=== PATIENT | male | born 1955 | race African-American/Black ===

== ENCOUNTER 2018-02-18 15:56 | Inpatient (IN) | payer MEDICARE ==
[~2018-02-18] VITALS: Ht 177.8 cm; Wt 129.9 kg
--- OUTSIDE RECORDS SUMMARY | 2018-02-18 16:00 | XMS REPORT | Clinical Summary ---
Author Author JADEN [employer] [facility] Address Unknown Phone Unavailable Care Team Providers Care Canal Structure Operator Name Role Phone PCP Unavailable Allergies Active Allergy Reactions Severity Noted Date Comments Levofloxacin Hives 12/01/2016 W/ burning sensation Current Medications Prescription Sig. Disp. Refills Start End Date Status Date labetalol (NORMODYNE) 300 Take 300 mg by mouth 2 Active MG tablet (two) times daily. levothyroxine (SYNTHROID, Take 175 mcg by mouth Active LEVOTHROID) 150 MCG daily. tablet simvastatin (ZOCOR) 20 MG Take 20 mg by mouth Active tablet nightly. LISINOPRIL ORAL Take 20 mg by mouth 2 Active (two) times daily. hydrALAZINE (APRESOLINE) Take 1 tablet (100 mg 90 tablet 0 11/12/19 Active 100 MG tablet total) by mouth 2 (two) 15 times daily. HYDROcodone-acetaminophen Take 2 tablets by mouth Active (NORCO 10-325) 10-325 mg every 4 (four) hours as per tablet needed for Pain. amLODIPine (NORVASC) 10 Take 10 mg by mouth. 08/21/20 Active MG tablet 14 clotrimazole-betamethason Apply to penile foreskin 07/07/20 Active e (LOTRISONE) 1-0.05 % daily PRN rash. 16 cream glimepiride (AMARYL) 4 MG Take 4 mg by mouth. 07/11/20 Active tablet 16 NIFEdipine (NIFEDICAL XL) Take 60 mg by mouth. 07/07/20 Active 60 MG (OSM) 24 hr tablet 16 albuterol-ipratropium Inhale 1 puff by mouth 1 Inhaler 0 12/04/19 Active (COMBIVENT RESPIMAT) via inhaler every 6 (six) 17 20-100 mcg/actuation Mist hours as needed for inhaler Wheezing or Shortness of Breath. predniSONE (DELTASONE) 20 4 tablets po x 3 days 40 tablet 0 12/04/19 Active MG tablet then 3 t x 3 d Then 2 t 17 x 3 d then 1 tab x 3 days then off.. fluticasone-salmeterol Inhale 1 puff by mouth 1 Inhaler 0 12/04/19 12/04/19 (ADVAIR) 250-50 mcg/dose via inhaler 2 (two) times 17 18 diskus inhaler daily. Active Problems Problem Noted Date Bronchitis 12/04/2016 COPD exacerbation ([facility]) 12/04/2016 YUDI (obstructive sleep apnea) 11/30/2016 Hypothyroid 11/30/2016 Type 2 diabetes mellitus ([facility]) 11/30/2016 DVT (deep venous thrombosis) ([facility]) 08/23/2015 Overview: UPDATED BY ICD10 SNOMED/IMO UPDATES Pulmonary embolism ([facility]) 08/23/2015 Shortness of breath at rest 08/20/2015 Acute renal failure ([facility]) 11/12/2014 Renal failure (ARF), acute on chronic ([facility]) 11/11/2014 Leukocytosis 11/11/2014 Ankylosing spondylitis of lumbar region ([facility]) 11/11/2014 Immunizations Name Dates Previously Given Next Due Tdap 07/08/2015 Social History Tobacco Use Types Packs/Day Years Used Date Current Every Day Smoker 11 20 Quit: 11/12/2013 Tobacco Cessation: Ready to Quit: No; Counseling Given: No Alcohol Use Drinks/Week oz/Week Comments Yes occasional Sex Assigned at Date Recorded Not on file Last Filed Vital Signs Not on file Plan of Treatment Not on file Implants Implanted Type Area Evidence Technician Device Expiration Model / Identifier Date Serial / Lot Ivan Young Ft Iii W/3 #2 [place]/Art Left: ARTHREX 02/18/2019 [id number] Sutures - [id number] hroscopy Shoulder 3 / Implanted: Qty: 2 on 05/01/2014 by / Sacha Gonzales MD [id number] Results Not on fileafter 02/17/2017
--- OUTSIDE RECORDS SUMMARY | 2018-02-18 16:00 | XMS REPORT ---
Author Author [facility] Address Unknown Phone Unavailable Care Team Providers Care Best Worker Name Role Phone PATRICIA CHICAS Unavailable Unavailable Problems This patient has no known problems. Allergies, Adverse Reactions, Alerts This patient has no known allergies or adverse reactions. Medications This patient has no known medications. Results Test Description Test Time Test Comments Text Results Atomic Results Result Comments BLOOD CULTURE 2016-12-06 07:00:00 CULTURE (BEAKER) (test [id number]=[id number]) No growth in 5 days BLOOD [id number] 07:00:00* Test Item Value Reference Range Comments CULTURE (BEAKER) (test [id number]) No growth in 5 days
[2018-02-18 16:32] LABS: BILIRUBIN,URINE NEGATIVE (NEGATIVE); CLARITY,URINE CLOUDY (CLEAR); COLOR,URINE STRAW (YELLOW); KETONES,URINE NEGATIVE (NEGATIVE); LEUKOCYTE ESTERASE ,URINE TRACE (NEGATIVE); NITRITE,URINE POSITIVE (NEGATIVE); PROTEIN,URINE DIPSTICK 2+ (NEGATIVE); URINE UROBILINOGEN 0.2 mg/dL (0.2 - 1)
[2018-02-18 16:44] LABS: AMORPHOUS SEDIMENT,URINE FEW (FEW); BACTERIA,URINE FEW /HPF
[2018-02-18] MEDS ORDERED: ONDANSETRON HCL INJ 2 MG/ML VIAL IV STA (18:38)
[2018-02-18] MEDS ORDERED: MORPHINE SULFATE 2 MG/ML SYR IV STA (18:38)
[2018-02-18] MEDS ORDERED: CEFTRIAXONE SOD 1 GM VIAL IV ONE (19:00)
[2018-02-18 19:06] LABS: BASOPHILS # (AUTO) 0.1 (0.0-0.1); BASOPHILS % 0.3 % (0.0-1.0); HEMATOCRIT 47.9 % (38.2-49.6); HEMOGLOBIN 16.1 g/dL (14.0-18.0); LYMPHOCYTES # (AUTO) 1.6 (1.0-3.2); LYMPHOCYTES % 6.6 % (18.0-39.1); MEAN CORPUSCULAR HEMOGLOBIN 32.4 pg (28-32); MEAN CORPUSCULAR HGB CONC 33.6 g/dL (31-35); MEAN CORPUSCULAR VOLUME 96.4 fL (81-99); MONOCYTES # (AUTO) 1.9 (0.2-0.8); MONOCYTES % 7.9 % (4.4-11.3); NEUTROPHILS % 84.5 % (38.7-80.0); PLATELET COUNT 271 x10e3/uL (140-360); RED BLOOD COUNT 4.97 x10e6/uL (4.3-5.7); RED CELL DISTRIBUTION WIDTH 14.7 % (11.7-14.4)
[2018-02-18 19:15] LABS: INR 1.01; PROTHROMBIN TIME 12.5 seconds (11.9-14.5)
[2018-02-18 19:16] LABS: PARTIAL THROMBOPLASTIN TIME 32.7 seconds (23.8-35.5)
[2018-02-18 19:24] LABS: ALANINE AMINOTRANSFERASE 30 IU/L (0-55); ALBUMIN 3.8 g/dL (3.5-5.0); ALBUMIN/GLOBULIN RATIO 0.8 (0.8-2.0); ALKALINE PHOSPHATASE 100 IU/L (40-150); ANION GAP 15.4 mmol/L (8-16); BLOOD UREA NITROGEN 15 mg/dL (7-26); BUN/CREATININE RATIO 14 (6-25); CALCIUM 9.9 mg/dL (8.4-10.2); CARBON DIOXIDE 28 mmol/L (22-29); CHLORIDE 98 mmol/L (98-107); EST GLOMERULAR FILTRATION RATE > 60 ML/MIN (60-); GLUCOSE 122 mg/dL (74-118); POTASSIUM 4.4 mmol/L (3.5-5.1); SODIUM 137 mmol/L (136-145)
--- NOTE | 2018-02-18 19:42 | Diagnostic Imaging Report ---
EXAM: CT Abdomen and Pelvis WITHOUT contrast INDICATION: \S\hematuria \S\[id number] \S\1900 COMPARISON: None. TECHNIQUE: Abdomen and pelvis were scanned utilizing a multidetector helical scanner from the lung base to the pubic symphysis without administration of IV contrast. Absence of intravenous contrast decreases sensitivity for detection of focal lesions and vascular pathology. Coronal and sagittal reformations were obtained. Routine protocol was performed. IV CONTRAST: None ORAL CONTRAST: Water COMPLICATIONS: None RADIATION DOSE: Total DLP: 1360.2 mGy*cm Estimated effective dose: (DLP x 0.015 x size factor) mSv CTDIvol has been reviewed. It is below the limits set by the Radiation Protocol Committee (RPC). FINDINGS: LINES and TUBES: Granados catheter in place. LOWER THORAX: Unremarkable HEPATOBILIARY: Too small to characterize 0.6 cm hypodensity in the right hepatic lobe. No biliary ductal dilation. GALLBLADDER: No radio-opaque stones or sludge. No wall thickening. SPLEEN: No splenomegaly. PANCREAS: No focal masses or ductal dilatation. ADRENALS: Thickened appearance of the adrenal glands, left greater than right, likely hyperplasia. KIDNEYS/URETERS: No hydronephrosis. No cystic or solid mass lesions. No stones. GI TRACT: No abnormal distention, wall thickening, or evidence of bowel obstruction. Appendix is not clearly identified. There is however no fat stranding or adenopathy in the right lower quadrant to suggest appendicitis. PELVIC ORGANS/BLADDER: Collapsed urinary bladder secondary to Granados, limiting evaluation. LYMPH NODES: No lymphadenopathy. VESSELS: There is mild atherosclerotic disease in the aorta and major arterial branches. PERITONEUM / RETROPERITONEUM: No free air or fluid. BONES: There are degenerative changes in the lumbar spine. SOFT TISSUES: There is a fat containing umbilical hernia. IMPRESSION: No nephrolithiasis or hydronephrosis. If hematuria persists, recommend CT urography for more sensitive evaluation. Signed by: DR. Minesh Yo MD on 02/18/2018 7:39 PM
[2018-02-18] MEDS ORDERED: ACETAMINOPHEN 325 MG TAB PO ONE (20:00)
[2018-02-18] MEDS ORDERED: HYDRALAZINE HCL 20 MG/ML VIAL IV ONE (20:00)
[2018-02-18] MEDS ORDERED: ACETAMINOPHEN 1000 MG/100 ML IV ONE (20:12)
[2018-02-18 20:19] LABS: LYMPHOCYTES % (MANUAL) 6 % (19-48); MONOCYTES % (MANUAL) 3 % (3.4-9.0); NEUTROPHILS % (MANUAL) 91 % (40-74); PLATELET ESTIMATE ADEQUATE; PLATELET MORPHOLOGY COMMENT NORMAL; RBC MORPHOLOGY COMMENT NORMAL
[2018-02-18] MEDS ORDERED: ONDANSETRON HCL INJ 2 MG/ML VIAL IV PRN (20:30)
[2018-02-18] MEDS ORDERED: LEVOFLOXACIN 500MG/D5W 100ML 100 ML IV SCH (21:00)
--- OUTSIDE RECORDS SUMMARY | 2018-02-18 23:51 | XMS REPORT | Clinical Summary ---
Author Author JADEN [employer] [facility] Address Unknown Phone Unavailable Care Team Providers Care Surgical Attendant Name Role Phone PCP Unavailable Allergies Active [...] Problem Noted Date Bronchitis 12/04/2016 COPD exacerbation ([facility]) 12/04/2016 YUDI (obstructive sleep apnea) 11/30/2016 Hypothyroid 11/30/2016 Type 2 diabetes mellitus ([facility]) 11/30/2016 DVT (deep venous thrombosis) ([facility]) 08/23/2015 Overview: UPDATED BY ICD10 SNOMED/IMO UPDATES Pulmonary embolism ([facility]) 08/23/2015 Shortness of breath at rest 08/20/2015 Acute renal failure ([facility]) 11/12/2014 Renal failure (ARF), acute on chronic ([facility]) 11/11/2014 Leukocytosis 11/11/2014 Ankylosing spondylitis of lumbar region ([facility]) 11/11/2014 Immunizations Name Dates Previously Given Next [...] Not on file Implants Implanted Type Area Protection Agent Device Expiration Model / Identifier Date Serial / Lot Ivan Young Ft Iii W/3 #2 [place]/Art Left: ARTHREX 02/18/2019 [id number] Sutures - [id number] hroscopy Shoulder 3 / Implanted: Qty: 2 on 05/01/2014 by / Sacha Gonzales MD [id number] Results Not on fileafter 02/17/2017
[2018-02-19] MEDS: SODIUM CHLORIDE 0.9% 1000ML 1,000 ML IV SCH ×3 (01:01→12:29)
[2018-02-19] MEDS: MORPHINE SULFATE 2 MG/ML SYR IV PRN ×2 (01:02→08:40)
[2018-02-19] MEDS ORDERED: DIPHENHYDRAMINE HCL INJ 50 MG/ML VIAL IV ONE (01:15)
[2018-02-19] MEDS ORDERED: DIPHENHYDRAMINE HCL INJ 50 MG/ML VIAL ONE (01:17)
[2018-02-19 08:05] LABS: BASOPHILS # (AUTO) 0.1 (0.0-0.1); BASOPHILS % 0.4 % (0.0-1.0); HEMOGLOBIN 15.9 g/dL (14.0-18.0); LYMPHOCYTES # (AUTO) 1.7 (1.0-3.2); MEAN CORPUSCULAR HEMOGLOBIN 32.1 pg (28-32); MEAN CORPUSCULAR HGB CONC 32.4 g/dL (31-35); MEAN CORPUSCULAR VOLUME 98.8 fL (81-99); MONOCYTES # (AUTO) 2.2 (0.2-0.8); MONOCYTES % 10.2 % (4.4-11.3); NEUTROPHILS # (AUTO) 17.6 (2.1-6.9); NEUTROPHILS % 80.8 % (38.7-80.0); PLATELET COUNT 252 x10e3/uL (140-360); RED BLOOD COUNT 4.96 x10e6/uL (4.3-5.7); RED CELL DISTRIBUTION WIDTH 14.5 % (11.7-14.4)
[2018-02-19 08:26] LABS: ALANINE AMINOTRANSFERASE 26 IU/L (0-55); ALBUMIN 3.2 g/dL (3.5-5.0); ALBUMIN/GLOBULIN RATIO 0.7 (0.8-2.0); ALKALINE PHOSPHATASE 96 IU/L (40-150); BLOOD UREA NITROGEN 12 mg/dL (7-26); BUN/CREATININE RATIO 14 (6-25); CARBON DIOXIDE 31 mmol/L (22-29); CHLORIDE 99 mmol/L (98-107); CREATININE, SERUM 0.88 mg/dL (0.72-1.25); EST GLOMERULAR FILTRATION RATE > 60 ML/MIN (60-); GLUCOSE 137 mg/dL (74-118); SODIUM 138 mmol/L (136-145)
[2018-02-19] MEDS ORDERED: METOPROLOL TARTRATE 50 MG TAB PO ONE (08:30)
[2018-02-19] MEDS: ONDANSETRON HCL 4 MG ORAL DISINTEGRATING TAB PO PRN (08:40)
[2018-02-19 08:54] LABS: CREATINE KINASE 684 IU/L (30-200); MAGNESIUM 2.1 MG/DL (1.3-2.1)
--- NOTE | 2018-02-19 09:25 | Diagnostic Imaging Report ---
PROCEDURE:CHEST SINGLE (PORTABLE) TECHNIQUE:Portable AP chest INDICATION:Dyspnea; UTI COMPARISON:None. FINDINGS: Low lung volumes with vascular crowding and bibasilar subsegmental atelectasis. Upper limits of normal heart size for technique. Intact skeleton. Study limited by underpenetration and body habitus. CONCLUSION: Low lung volume without acute abnormality. Consider 2 view chest radiograph if continued clinical concern for chest pathology in the setting of dyspnea. Dictated by: Beni Sanches M.D. on 02/19/2018 at 9:27 Electronically approved by: Beni Sanches M.D. on 02/19/2018 at 9:27
[2018-02-19 10:28] LABS: LYMPHOCYTES % (MANUAL) 5 % (19-48); MONOCYTES % (MANUAL) 3 % (3.4-9.0); NEUTROPHILS % (MANUAL) 88 % (40-74); PLATELET ESTIMATE ADEQUATE; PLATELET MORPHOLOGY COMMENT NORMAL; RBC MORPHOLOGY COMMENT NORMAL
[2018-02-19] MEDS ORDERED: GLIMEPIRIDE2 MG PO (12:32)
[2018-02-19] MEDS ORDERED: ADVAIR 250-501 EACH (12:32)
[2018-02-19] MEDS ORDERED: LEVOTHYROXINE200 MCG PO (12:32)
[2018-02-19] MEDS ORDERED: COMBIVENT RESPIM4 GM IH (12:32)
[2018-02-19] MEDS ORDERED: LISINOPRIL10 MG PO (12:32)
[2018-02-19] MEDS ORDERED: LABETALOL HCL200 MG PO (12:32)
[2018-02-19] MEDS ORDERED: JANUVIA100 MG PO (12:32)
[2018-02-19] MEDS ORDERED: NORCO 10-325 T1 EACH PO (12:32)
[2018-02-19] MEDS ORDERED: CHLORTHALIDONE25 MG PO (12:32)
[2018-02-19] MEDS ORDERED: NIFEDIPINE ER60 MG PO (12:32)
[2018-02-19] MEDS ORDERED: SIMVASTATIN20 MG PO (12:32)
[2018-02-19] MEDS: NIFEDIPINE CR 30 MG TAB PO SCH ×2 (12:45→21:28)
[2018-02-19 15:00] VITALS: BP 172/78
[2018-02-19] MEDS ORDERED: DEXTROSE 50% SYRINGE 50 ML IV PRN (15:45)
[2018-02-19 15:47] VITALS: BP 172/78
[2018-02-19] MEDS ORDERED: CEFTRIAXONE SOD 1 GM VIAL IV SCH (16:00)
[2018-02-19] MEDS: LISINOPRIL 20 MG TAB PO SCH (16:26)
[2018-02-19] MEDS: INSULIN LISPRO 100 UNIT/1 ML 3ML VIAL SQ SCH ×2 (16:26→21:00)
[2018-02-19] MEDS ORDERED: NON-FORMULARY MEDICATION (Nifedipine (Nifedipine Er) 1 TAB) PO SCH (17:00)
[2018-02-19] MEDS ORDERED: PIPER-TAZ 3.375 GM 3.375 GM/100 ML BAG IV SCH (17:45)
[2018-02-19 17:50] VITALS: BP 157/71
[2018-02-19 18:16] LABS: ABG PH 7.28 (7.31-7.41)
[2018-02-19 18:17] LABS: ABG PCO2 74 mmHg (41-51); ABG PO2 52 mmHg (80-105)
[2018-02-19 18:18] LABS: ABG HCO3 35 mmol/L (23-28)
[2018-02-19] MEDS: ALBUTEROL/IPRATROPIUM 3 ML NEB NEB SCH ×2 (18:45→23:25)
[2018-02-19] MEDS: PIPER-TAZ 3.375 GM 100 ML IV SCH (19:50)
[2018-02-19 20:00] VITALS: BP 180/82
[2018-02-19 20:02] VITALS: BP 180/82
[2018-02-20] VITALS (20 sets, daily range): BP systolic 119–198; BP diastolic 57–112
--- NOTE | 2018-02-20 02:18 | Consultation ---
DATE OF CONSULTATION: February 19, 2018 PULMONARY/CRITICAL CARE MEDICINE CONSULT REFERRING PHYSICIAN: Dr. Lam REASON FOR REFERRAL: Respiratory failure. HISTORY: Mr. Souza is a pleasant 62-year-old gentleman with acute respiratory failure. Patient presented to the emergency room after being forwarded by his PCP. Patient was complaining of subjective fevers. Furthermore, patient was complaining about pain on urination and difficulty. He was also having some low-level bleeding as well. Patient came to emergency room. He had temperature of 101.4 measured. He was started on antibiotics after urinalysis showed 6 to 10 white blood cells. Patient without any other significant perceived issues. He did get dose of Levaquin after his white blood count was found to be 23,000. At that point, he developed some skin reaction and itchiness without hosea rash. Patient received some Benadryl thereafter. Patient was sent to the medical floor for further treatment. He had some confusion and obtundation. Patient eventually had blood gas analysis showing 7.28/74/52. He was emergently asked to go to BiPAP therapy and sent to the ICU. PAST MEDICAL HISTORY: Diabetes, hypertension, unknown other. MEDICATIONS: No list provided yet. ALLERGIES: LEVOFLOXACIN POSSIBLY. SOCIAL HISTORY: Unknown. Reportedly, he does not smoke. FAMILY HISTORY: Noncontributory. REVIEW OF SYSTEMS: Cannot get reliably at this time as he is on respiratory support. OBJECTIVE: VITAL SIGNS: Currently afebrile, vital signs noted per electronic record. Patient just aroused from the obtunded state, but arousing to wildly confused and agitated state. Now on BiPAP, he is tolerating better now after initially ripping and breaking the mask off. HEENT: Normocephalic, atraumatic. NECK: Supple, but it is a large neck, throat midline. CARDIOVASCULAR: S1, S2. No murmurs, rubs, or gallops. PULMONARY: Bilateral air entry, limited evaluation due to decreased participation. ABDOMEN: Soft, obese, totally nontender anteriorly. EXTREMITIES: No clubbing, no cyanosis, there is no edema. INTEGUMENT: No rash, no purpura. LABS: 49 hematocrit, 253,000 platelets. 4.0 potassium, 12 BUN, creatinine 0.88. CK level was 684. Albumin was 3.2. Globulin was 4.4. There was lot of hematuria and there were some additional red blood cells noted. Chest x-ray mostly unremarkable lungs. CT abdomen and pelvis was mostly unremarkable. There was a right lower lobe subcentimeter lung nodule. IMPRESSION AND PLAN: 1. Acute respiratory failure, with bilevel positive airway pressure salvage. 2. Encephalopathy, not otherwise specified. 3. Elevated high blood pressure, treat as emergency hypertension. 4. Febrile syndrome, treat as sepsis. Consideration for prostatitis, possible urinary tract infection. 5. Hematuria. 6. Right lower lobe lung nodule, subcentimeter on the computerized tomography abdomen. 7. Mild rhabdomyolysis. 8. Mild hypoalbuminemia. 9. First-degree atrioventricular block on electrocardiogram, premature ventricular contractions, abnormal electrocardiogram mildly. 10. Reported diabetes and hypertension. 11. Significant obesity, rule out sleep apnea. 12. Unknown other history also may be present. Continue weaning the bilevel positive airway pressure. Repeat blood gas analysis, which showed improvement in pH of 7.34. Control the blood pressure. Continue intravenous antibiotics, but switch from Levaquin. Patient may need prostate exam. Repeat CK to ensure it improves. Check urinary drug screen and follow up lytes and thyroid function due to this mild electrocardiogram abnormality. Lung nodule needs future followup with repeat computerized axial tomography scan of chest in future. Will need more history when available. Thank you very much, Dr. Lam and Rod for allowing me the chance to participate in the care of Mr. Souza. Do not hesitate to contact me if I can help in any way. Job#: [id number]
[2018-02-20] MEDS: ALBUTEROL/IPRATROPIUM 3 ML NEB NEB SCH ×6 (03:15→22:50)
[2018-02-20] MEDS: PIPER-TAZ 3.375 GM 100 ML IV SCH ×2 (03:32→10:37)
[2018-02-20 04:19] LABS: ABG PCO2 58 mmHg (41-51); ABG PH 7.34 (7.31-7.41); ABG PO2 229 mmHg (80-105)
[2018-02-20 04:20] LABS: ABG HCO3 32 mmol/L (23-28)
[2018-02-20] MEDS: INSULIN LISPRO 100 UNIT/1 ML 3ML VIAL SQ SCH ×4 (05:21→20:13)
[2018-02-20 06:20] LABS: BASOPHILS # (AUTO) 0.1 (0.0-0.1); BASOPHILS % 0.3 % (0.0-1.0); EOSINOPHILS % 0.1 % (0.0-6.0); HEMATOCRIT 50.3 % (38.2-49.6); HEMOGLOBIN 15.8 g/dL (14.0-18.0); LYMPHOCYTES # (AUTO) 1.5 (1.0-3.2); LYMPHOCYTES % 8.5 % (18.0-39.1); MEAN CORPUSCULAR HGB CONC 31.4 g/dL (31-35); MEAN CORPUSCULAR VOLUME 101.8 fL (81-99); NEUTROPHILS # (AUTO) 14.3 (2.1-6.9); NEUTROPHILS % 79.7 % (38.7-80.0); PLATELET COUNT 277 x10e3/uL (140-360); RED BLOOD COUNT 4.94 x10e6/uL (4.3-5.7); RED CELL DISTRIBUTION WIDTH 14.4 % (11.7-14.4)
[2018-02-20 06:58] LABS: ALBUMIN 2.7 g/dL (3.5-5.0); ALBUMIN/GLOBULIN RATIO 0.6 (0.8-2.0); ANION GAP 12.4 mmol/L (8-16); CALCIUM 8.8 mg/dL (8.4-10.2); CREATININE, SERUM 1.47 mg/dL (0.72-1.25); POTASSIUM 4.4 mmol/L (3.5-5.1)
[2018-02-20 07:02] LABS: THYROID STIMULATING HORMONE 3.365 uIU/mL (0.350-4.940)
[2018-02-20] MEDS: LISINOPRIL 20 MG TAB PO SCH (07:50)
[2018-02-20] MEDS: MORPHINE SULFATE 2 MG/ML SYR IV PRN ×3 (07:50→18:00)
[2018-02-20] MEDS: NIFEDIPINE CR 30 MG TAB PO SCH ×2 (07:51→20:11)
[2018-02-20 10:24] LABS: LYMPHOCYTES % (MANUAL) 11 % (19-48); MONOCYTES % (MANUAL) 8 % (3.4-9.0); NEUTROPHILS % (MANUAL) 80 % (40-74)
[2018-02-20 10:25] LABS: ANISOCYTOSIS SLIGHT; PLATELET ESTIMATE ADEQUATE; PLATELET MORPHOLOGY COMMENT NORMAL; RBC MORPHOLOGY COMMENT NORMAL
--- NOTE | 2018-02-20 10:39 | Diagnostic Imaging Report ---
PROCEDURE:US RETROPERITONEAL ( KIDNEY ). COMPARISON:CT abdomen and pelvis 02/18/2018. INDICATIONS:HYDRONEPHROSIS TECHNIQUE: Bennett-scale and color sonographic images of the bilateral kidneys and bladder where obtained in transverse and longitudinal planes. The examination is limited due to increased body habitus and overlying bowel gas. FINDINGS: RIGHT KIDNEY: 10.3 cm, cortex 1.5 cm Cysts: None. Solid masses: None. Stones: None. Hydronephrosis: None. Echogenicity: Normal. LEFT KIDNEY: 10.8 cm, cortex 1.9 cm Cysts: None. Solid masses: None. Stones: None. Hydronephrosis: None. Echogenicity: Normal. Bladder: Granados catheter is present in a decompressed urinary bladder. Prostate: Not visualized. CONCLUSION: No acute sonographic abnormality. Dictated by: Anish Noonan M.D. on 02/20/2018 at 10:41 Electronically approved by: Anish Noonan M.D. on 02/20/2018 at 10:41
--- NOTE | 2018-02-20 13:22 | Consultation ---
DATE OF CONSULTATION: February 20, 2018 REQUESTING PHYSICIAN: Charley Lam MD REASON FOR CONSULTATION: History of dysuria and pus on the penis. HISTORY: This 62-year-old male came to the hospital sent by his doctor because of severe dysuria. He also was having some shortness of breath. He got admitted to the emergency room with difficulty breathing, needing medication. He was placed on antibiotics. The patient has a long history of urinary problems. Not only does he have dysuria, which supposedly started Sunday, but he also has had frequency, urgency, and nocturia. His frequency is so severe that he carries a urinal in his truck since he has severe urgency that makes him incontinent as well. This has been going on for over a year, getting progressively worse. The patient has not been seen for this condition. He has been seen for a history of balanitis in the past at [facility] and has been given creams on multiple occasions. The patient has had a urine culture showing multiple organisms. PAST MEDICAL HISTORY: Diabetic. SOCIAL HISTORY: . PHYSICAL EXAMINATION: Prostate is 30 grams. Granados indwelling catheter. Pus all around the meatus. Pus all around the prepuce. Pus all around his glans penis. The testicles are not enlarged or distended. There is no inguinal hernia palpable. The testicles are not showing up with any pain either. IMPRESSION: Severe balanitis, posthitis, severe urethritis. RECOMMENDATIONS: Discontinue the Granados catheter. Give him a voiding trial and see if he empties his bladder. Start Diflucan by mouth 300 mg daily. We also will put some clotrimazole cream around his penis 3 to 4 times a day. I have discussed with the nurse to get a postvoid residual when the patient voids to see if he is in retention or not. I doubt it, since the CT scan shows normal kidneys with no hydronephrosis and no stones. Job#: [id number]
[2018-02-20] MEDS: CLOTRIMAZOLE/BETAMETHASONE 45 GM CR TP SCH ×2 (14:38→20:11)
[2018-02-20] MEDS: FLUCONAZOLE 100 MG TAB PO SCH (14:38)
[2018-02-20] MEDS: ENOXAPARIN SOD INJ 40 MG/0.4 ML SYR SC SCH (17:00)
[2018-02-20] MEDS: CEFTRIAXONE SOD 1 GM VIAL IV SCH (18:02)
--- NOTE | 2018-02-20 18:11 | Progress Note ---
DATE: February 20, 2018 PULMONARY MEDICINE PROGRESS NOTE SUBJECTIVE: Mr. Souza was seen and examined at the bedside. He was having BiPAP during the night, but he is overall better mentally. He was still confused in the morning, however. This morning he was weaned off the BiPAP and is now on nasal cannula oxygen. The patient with Granados in place earlier today, but urology saw the patient and gave a trial of removal. REVIEW OF SYSTEMS: No headaches. No rash. OBJECTIVE VITALS: Afebrile. Vital signs noted per electronic record. GENERAL: In no acute distress. Alert and cooperative. HEENT: Normocephalic and atraumatic. NECK: Supple. Throat midline. LUNGS: Bilateral air entry. Few rhonchi. CARDIOVASCULAR: S1 and S2. No murmurs, rubs or gallops. ABDOMEN: Soft and nontender. EXTREMITIES: No clubbing. No cyanosis. There is trace edema. INTEGUMENT: No rash. No purpura. LABS: BUN 27, creatinine 1.5, potassium 4.4. White count 18, hematocrit 50 and platelets 277,000. Ultrasound did not show any existing hydronephrosis. IMPRESSION AND PLAN 1. Severe urinary tract infection. 2. Sepsis versus possible obstructive uropathy. 3. Balanitis. 4. Acute respiratory failure with BiPAP salvage. 5. Encephalopathy, not otherwise specified. Continue antibiotics at this time. Continue weaning the oxygen. He can choose if he wants to continue BiPAP use at night, although acute phase of this illness is probably better. Granados was pulled, and he will need postvoid residual evaluation to see if the Granados needs to go back in. Repeat electrolytes given the creatinine increased today. Job#: [id number] [place]
[2018-02-20] MEDS: LABETALOL HCL 200 MG TAB PO SCH (20:11)
[2018-02-20] MEDS: MORPHINE SULFATE 4 MG/ML SYR IV PRN (23:05)
[2018-02-21] VITALS (18 sets, daily range): BP systolic 122–172; BP diastolic 66–98
[2018-02-21] MEDS: ALBUTEROL/IPRATROPIUM 3 ML NEB NEB SCH ×6 (02:50→23:05)
[2018-02-21 06:10] LABS: BASOPHILS # (AUTO) 0.1 (0.0-0.1); BASOPHILS % 0.4 % (0.0-1.0); EOSINOPHILS # (AUTO) 0.1 (0.0-0.4); EOSINOPHILS % 0.9 % (0.0-6.0); HEMATOCRIT 45.8 % (38.2-49.6); HEMOGLOBIN 14.8 g/dL (14.0-18.0); LYMPHOCYTES # (AUTO) 1.6 (1.0-3.2); LYMPHOCYTES % 12.3 % (18.0-39.1); MEAN CORPUSCULAR HEMOGLOBIN 32.1 pg (28-32); MEAN CORPUSCULAR HGB CONC 32.3 g/dL (31-35); MEAN CORPUSCULAR VOLUME 99.3 fL (81-99); MONOCYTES # (AUTO) 1.9 (0.2-0.8); MONOCYTES % 14.1 % (4.4-11.3); NEUTROPHILS # (AUTO) 9.5 (2.1-6.9); NEUTROPHILS % 72.1 % (38.7-80.0); PLATELET COUNT 274 x10e3/uL (140-360); RED BLOOD COUNT 4.61 x10e6/uL (4.3-5.7); RED CELL DISTRIBUTION WIDTH 14.1 % (11.7-14.4)
[2018-02-21 06:39] LABS: ALANINE AMINOTRANSFERASE 23 IU/L (0-55); ALBUMIN 2.6 g/dL (3.5-5.0); ALBUMIN/GLOBULIN RATIO 0.6 (0.8-2.0); ALKALINE PHOSPHATASE 84 IU/L (40-150); BLOOD UREA NITROGEN 24 mg/dL (7-26); BUN/CREATININE RATIO 20 (6-25); CALCIUM 8.8 mg/dL (8.4-10.2); CARBON DIOXIDE 33 mmol/L (22-29); CHLORIDE 96 mmol/L (98-107); CREATININE, SERUM 1.21 mg/dL (0.72-1.25); EST GLOMERULAR FILTRATION RATE > 60 ML/MIN (60-); GLUCOSE 121 mg/dL (74-118); MAGNESIUM 2.2 MG/DL (1.3-2.1); PHOSPHORUS 2.5 MG/DL (2.3-4.7); SODIUM 137 mmol/L (136-145)
[2018-02-21] MEDS: INSULIN LISPRO 100 UNIT/1 ML 3ML VIAL SQ SCH ×4 (07:30→21:06)
[2018-02-21] MEDS: FLUCONAZOLE 100 MG TAB PO SCH (08:28)
[2018-02-21] MEDS: NIFEDIPINE CR 30 MG TAB PO SCH ×2 (08:28→21:05)
[2018-02-21] MEDS: CLOTRIMAZOLE/BETAMETHASONE 45 GM CR TP SCH ×3 (08:30→21:05)
[2018-02-21] MEDS: LABETALOL HCL 200 MG TAB PO SCH ×3 (08:30→21:05)
[2018-02-21 08:34] LABS: EOSINOPHILS % (MANUAL) 1 % (0-7); LYMPHOCYTES % (MANUAL) 12 % (19-48); MONOCYTES % (MANUAL) 7 % (3.4-9.0); NEUTROPHILS % (MANUAL) 80 % (40-74)
[2018-02-21 08:35] LABS: ANISOCYTOSIS SLIGHT; HOWELL-JOLLY BODIES FEW; PLATELET ESTIMATE ADEQUATE; PLATELET MORPHOLOGY COMMENT FEW LARGE; RBC MORPHOLOGY COMMENT NORMAL
[2018-02-21] MEDS ORDERED: FLUCONAZOLE 100 MG TAB PO SCH (09:00)
--- NOTE | 2018-02-21 14:26 | Progress Note ---
DATE: February 21, 2018 PULMONARY MEDICINE PROGRESS NOTE SUBJECTIVE: Mr. Souza was seen and examined at bedside. He continues to be sitting up. He did not use BiPAP yesterday. He is a little bit on the sleepy side however, while sitting up he is falling asleep as I am talking to him. Overall he is able to urinate more easily with less pain and less strain. No high PVRs are noted. Two liters per minute via nasal cannula oxygen right now. REVIEW OF SYSTEMS: No headaches, no rash. OBJECTIVE VITAL SIGNS: Afebrile. Vital signs noted per the chart record. GENERAL: No acute distress, alert and calm. HEENT: Normocephalic, atraumatic. NECK: Supple. Throat midline. Large neck. LUNGS: Bilateral air entry, decreased effort, a few crackles at the base. CARDIOVASCULAR: S1, S2. No murmurs, rubs, or gallops. ABDOMEN: Soft, nontender. EXTREMITIES: No clubbing, no cyanosis. There is no edema. INTEGUMENT: No rash, no purpura. LABS: 24 BUN, 1.2 creatinine, 13 white count, 45 hematocrit, 374 platelets. IMPRESSION AND PLAN 1. Benign prostatic hyperplasia. 2. Urinary tract infection. 3. Acute kidney injury, resolving. 4. Acute respiratory failure, now extubated or off the BiPAP. Patient however with excess sleepiness not otherwise specified. 5. Encephalopathy. Continue treatment for severe urinary tract infection. Patient will continue on DVT prophylaxis. Patient will have neuropsychiatric evaluation to ensure he is appropriately awake. Will check a repeat blood gas if he worsens and has difficulties. I encouraged him to try using the BiPAP again at night. Job#: [id number] [place]
[2018-02-21] MEDS: ENOXAPARIN SOD INJ 40 MG/0.4 ML SYR SC SCH (16:37)
[2018-02-21] MEDS: CEFTRIAXONE SOD 1 GM VIAL IV SCH (16:37)
[2018-02-21] MEDS: MORPHINE SULFATE 4 MG/ML SYR IV PRN ×2 (17:04→21:04)
[2018-02-21 19:08] LABS: AMPHETAMINES SCREEN,URINE NEGATIVE (NEGATIVE); BENZODIAZEPINES SCREEN,URINE NEGATIVE (NEGATIVE); PHENCYCLIDINE SCREEN,URINE NEGATIVE (NEGATIVE)
[2018-02-22] MEDS: MORPHINE SULFATE 4 MG/ML SYR IV PRN ×2 (02:31→14:50)
[2018-02-22 05:25] LABS: BASOPHILS # (AUTO) 0.1 (0.0-0.1); BASOPHILS % 0.5 % (0.0-1.0); EOSINOPHILS # (AUTO) 0.2 (0.0-0.4); EOSINOPHILS % 2.2 % (0.0-6.0); HEMATOCRIT 45.2 % (38.2-49.6); HEMOGLOBIN 15.3 g/dL (14.0-18.0); LYMPHOCYTES # (AUTO) 1.5 (1.0-3.2); MEAN CORPUSCULAR HEMOGLOBIN 32.3 pg (28-32); MEAN CORPUSCULAR HGB CONC 33.8 g/dL (31-35); MEAN CORPUSCULAR VOLUME 95.4 fL (81-99); MONOCYTES # (AUTO) 1.2 (0.2-0.8); NEUTROPHILS # (AUTO) 6.4 (2.1-6.9); NEUTROPHILS % 68.1 % (38.7-80.0); PLATELET COUNT 274 x10e3/uL (140-360); RED BLOOD COUNT 4.74 x10e6/uL (4.3-5.7); RED CELL DISTRIBUTION WIDTH 13.5 % (11.7-14.4)
[2018-02-22 05:41] LABS: ANION GAP 12.2 mmol/L (8-16); BLOOD UREA NITROGEN 17 mg/dL (7-26); BUN/CREATININE RATIO 18 (6-25); CARBON DIOXIDE 30 mmol/L (22-29); CHLORIDE 98 mmol/L (98-107); CREATININE, SERUM 0.95 mg/dL (0.72-1.25); EST GLOMERULAR FILTRATION RATE > 60 ML/MIN (60-); GLUCOSE 149 mg/dL (74-118); POTASSIUM 4.2 mmol/L (3.5-5.1); SODIUM 136 mmol/L (136-145)
[2018-02-22 06:52] VITALS: BP 169/94
[2018-02-22] MEDS: ALBUTEROL/IPRATROPIUM 3 ML NEB NEB SCH ×3 (07:15→15:00)
[2018-02-22 07:50] VITALS: BP 159/88
[2018-02-22 10:01] VITALS: BP 159/85
[2018-02-22] MEDS: FLUCONAZOLE 100 MG TAB PO SCH (10:05)
[2018-02-22] MEDS: LABETALOL HCL 200 MG TAB PO SCH ×2 (10:06→14:51)
[2018-02-22] MEDS: INSULIN LISPRO 100 UNIT/1 ML 3ML VIAL SQ SCH ×3 (10:13→16:26)
[2018-02-22] MEDS: NIFEDIPINE CR 30 MG TAB PO SCH (11:35)
[2018-02-22] MEDS: CLOTRIMAZOLE/BETAMETHASONE 45 GM CR TP SCH ×2 (11:36→14:56)
[2018-02-22] MEDS ORDERED: DOCUSATE SODIUM 100 MG CAP PO ONE (13:15)
[2018-02-22] MEDS: ONDANSETRON HCL 4 MG ORAL DISINTEGRATING TAB PO PRN (14:50)
--- NOTE | 2018-02-22 15:57 | Discharge Summary ---
PRIMARY CARE DOCTOR: Dr. Charles Diaz. FINAL DIAGNOSIS: Sepsis present on admission due to severe balanitis, prostatitis and urethritis, and urinary tract infection. SECONDARY DIAGNOSIS 1. Acute respiratory failure, resolved. 2. Morbid obesity. 3. Uncontrolled hypertension, better. 4. Stage 3 chronic kidney disease, better. CONSULTANTS 1. Dr. Nicholas Messina, composition weatherboard applier. 2. Dr. John Taylor, urologist. PROCEDURES/STUDIES PERFORMED 1. Renal ultrasound. 2. Abdominopelvic computed tomography. HISTORY: Per H\T\P. HOSPITAL COURSE: The patient was admitted. It appears that HE IS ALLERGIC TO LEVAQUIN AFTER HE RECEIVED IT IN THE ED. Initially patient was on Zosyn. Then subsequently this was switched to IV Rocephin given the renal insufficiency. Patient had acute respiratory failure on the floor, was transferred to ICU and was on BiPAP for a little bit. Part of the etiology is due to sepsis with underlying obesity-hypoventilating syndrome. However, patient's urine toxicity screen also revealed marijuana and cocaine, which he admits to. I have updated his primary care. Patient was also further evaluated by Urology and was diagnosed with balanitis, prostatitis and urethritis. His white blood cell count responded very nicely from 23.7 on admission to 9.4 on the day of discharge. Patient will be going home on Augmentin for 3 more weeks along with fluconazole. He will also be getting clotrimazole topical as well. Patient was seen and examined today. It took 35 minutes total to discharge this patient, including discussion with specialists and the primary care doctor. Patient's respiratory status improved and does not need home oxygen. CONDITION ON DISCHARGE: Stable. DISCHARGE MEDICATIONS: Please see medication reconciliation form. ERI GARNER M.D. Job#: [id number] EV cc: CHARLES DIAZ MD [facility]
[2018-02-22 15:58] VITALS: BP 153/81
[2018-02-22] MEDS: CEFTRIAXONE SOD 1 GM VIAL IV SCH (16:22)
[2018-02-22] MEDS: ENOXAPARIN SOD INJ 40 MG/0.4 ML SYR SC SCH (16:22)
[2018-02-22] MEDS ORDERED: MORPHINE SULFATE 2 MG/ML SYR IV PRN (17:45)
--- NOTE | 2018-02-22 18:11 | Progress Note ---
DATE: February 22, 2018 PULMONARY MEDICINE PROGRESS NOTE SUBJECTIVE: Mr. Souza was seen and examined at bedside. He continues to have steady progress. He is walking more independently today. He did confess to use of certain prohibited substances. A urine drug screen came back positive. Patient continues to have good eating and was mostly awake today. REVIEW OF SYSTEMS: No bleeding, no headaches. OBJECTIVE VITAL SIGNS: Afebrile. Vital signs reviewed per electronic record. GENERALLY: No acute distress. HEENT: Normocephalic. NECK: Supple. Throat midline. LUNGS: Bilateral air entry. CARDIOVASCULAR: S1 and S2. ABDOMINAL: Soft. EXTREMITIES: No edema. INTEGUMENT: No rash. No purpura. LABS: Noted per electronic record. Creatinine is 0.9. IMPRESSION AND PLAN 1. Acute respiratory failure, resolved. 2. Polysubstance abuse. 3. Severe urinary tract infection. 4. Obesity, rule out obesity-hypoventilation syndrome and rule out sleep apnea. I believe sleep study is recommended. Continue followup. If he continues to do good today, will allow him to go home later. Patient will need to continue antibiotics. He will need urology followup as he gets out of the hospital and gets better. Job#: [id number] EV
== END 2018-02-22 17:05 | disposition home or self-care (01) | DRG 871 ==
LOC: ER 15:56 → ERHOLD 23:48 → MED/SURG2 02-19 14:55 → ICU 02-19 21:47 → OBSVTOIN 02-20 10:59
PROVIDERS: ADMIT Internal Medicine; ATTEND Internal Medicine
DX: A41.9 Sepsis, unspecified organism (principal); G93.40 Encephalopathy, unspecified; J96.21 Acute and chronic respiratory failure with hypoxia; M62.82 Rhabdomyolysis; E66.2 Morbid (severe) obesity with alveolar hypoventilation; Z68.41 Body mass index [BMI] 40.0-44.9, adult; N17.9 Acute kidney failure, unspecified; N48.1 Balanitis; R31.9 Hematuria, unspecified; E88.09 Other disorders of plasma-protein metabolism, not elsewhere classified; N18.3 Chronic kidney disease, stage 3 (moderate); I12.9 Hypertensive chronic kidney disease with stage 1 through stage 4 chronic kidney disease, or unspecified chronic kidney disease; E11.22 Type 2 diabetes mellitus with diabetic chronic kidney disease; F14.10 Cocaine abuse, uncomplicated; F12.10 Cannabis abuse, uncomplicated; N41.9 Inflammatory disease of prostate, unspecified; N34.2 Other urethritis; N40.1 Benign prostatic hyperplasia with lower urinary tract symptoms; N39.498 Other specified urinary incontinence; R35.0 Frequency of micturition; R39.15 Urgency of urination; R65.20 Severe sepsis without septic shock
CPT/HCPCS: 36415; 36600; 51700; 71045; 74176; 76770; 80048; 80053; 80307; 81001; 82550; 82553; 82805; 82948; 83735; 83880; 84100; 84152; 84443; 84484; 85025; 85610; 85730; 87040; 87086; 93005; 94640; 94660; 96372; 99284; G0378; J0696; J1200; J1650; J1956; J2270; J2543; J7030